=== PATIENT | male | born 1995 | race Caucasian/White ===

== ENCOUNTER 2019-07-29 14:43 | Emergency (ER) | payer SELFPAY ==
[2019-07-29 15:17] LABS: #Basophils 0.1 thou/uL (0.0-0.2); #Eosinphils 0.2 thou/uL (0.0-0.7); %Basophils 0.4 % (0.0-1.0); %Eosinophils 1.2 % (0.0-10.0); %Monocytes 6.3 % (0.0-10.0); %Neutrophils 79.2 % (42.0-75.0); Hemoglobin 17.1 g/dL (14.0-18.0); Mean Corpuscular HGB CONC 34.9 g/dL (32.0-36.0); Mean Platelet Volume 7.8 fL (7.4-10.4); Platelet Count 281 thou/uL (130-400); RBC Distribution Width 12.6 % (11.5-14.5); Red Blood Cell (RBC) Count 5.71 mill/uL (4.70-6.10); White Blood Cell (WBC) Count 15.2 thou/uL (4.8-10.8)
[2019-07-29 15:22] LABS: Bacteria/HPF None Seen HPF (None Seen); Bilirubin Negative (Negative); Blood, Urine Trace (Negative); Clarity Clear (Clear); Glucose, Urine (Dipstick) Normal (Negative); Leukocyte Negative Leu/uL (Negative); Nitrite Negative (Negative); Protein, Urine (Dipstick) 30 mg/dL (Neg-Trace); RBC/HPF 0-3 HPF (0-3); Squamous Epithelial None Seen HPF (0-3); Urobilinogen Normal mg/dL (Less than 2); WBC/HPF 0-3 HPF (0-3)
--- NOTE | 2019-07-29 15:26 | RAD ---
Exam:3 views left shoulder HISTORY: Pain. Fall. COMPARISON: None FINDINGS: Anterior-inferior dislocation. Postreduction films are recommended. IMPRESSION: Dislocation. Postreduction films are recommended.
[2019-07-29 15:35] LABS: ALT (SGPT) 11 U/L (8-55); AST (SGOT) 19 U/L (5-34); Albumin 3.9 g/dL (3.5-5.0); Alcohol Less than 10 mg/dL (Less than 10); Alkaline Phosphatase 87 U/L (40-110); Anion Gap 14 mmol/L (10-20); BUN (Urea Nitrogen) 9 mg/dL (8.9-20.6); Bilirubin, Total 0.5 mg/dL (0.2-1.2); Calc. Creatinine Clearance 0 mL/min (70-130); Calcium 8.5 mg/dL (7.8-10.44); Carbon Dioxide 17 mmol/L (22-29); Chloride 109 mmol/L (98-107); Estimated GFR-MDRD Greater than 90; Globulin 2.9 g/dL (2.4-3.5); Glucose 113 mg/dL (70-105); Potassium 3.7 mmol/L (3.5-5.1); Protein, Total 6.8 g/dL (6.0-8.3); Sodium 136 mmol/L (136-145)
--- NOTE | 2019-07-29 15:43 | CT ---
Exam: Head CT without contrast HISTORY: Trauma. Pain. Seizure. COMPARISON: none FINDINGS: Hemorrhage: No intraparenchymal hemorrhage or extra-axial hematoma. Brain parenchyma: Cortical ramon-white matter differentiation is preserved. No mass effect or midline shift. Basilar cisterns are patent. Ventricular system: Sulci are patent and symmetric. No hydrocephalus. Calvarium: Intact. Sinuses and mastoid air cells: Mucosal disease of the right sphenoid sinus IMPRESSION: No intracranial post traumatic sequelae.
--- NOTE | 2019-07-29 15:54 | CT ---
Exam: Maxillofacial CT without contrast HISTORY: Seizure. Trauma. Pain FINDINGS: Visualized brain parenchyma has appropriate attenuation Bilateral ocular lenses are appropriately located. Both globes are intact. Retrobulbar fat is preserv ed. Symmetric attenuation of the optic nerves and ocular rectus muscles Visualized aerodigestive tract is patent. Midline fatty raphae of the tongue is preserved. Epiglottis has a normal caliber. Preepiglottic fat is preserved Coronal images demonstrate patent bilateral ostiomeatal complexes. Mild rightward deviation of the na hoda septum with associated spur Zygomatic arches are intact Maxilla and mandible is intact. The osseous margins of the sinuses and orbits are maintained. No fracture. No nasal bone fracture. No symmetric and soft tissue hematoma. IMPRESSION: No maxillofacial fracture. Transcribed Date/Time: 07/29/2019 4:38 PM
--- NOTE | 2019-07-29 15:56 | CT ---
Exam: CT cervical spine without contrast HISTORY: Trauma. Pain. COMPARISON: None FINDINGS: No craniocervical dissociation. Though the lateral masses of C1 and C2 appear to articulate appropria tely, there is asymmetric narrowing of the lateral clear space along the left aspect of the odontoid process. The possibility of ligamentous injury cannot be excluded. Intact odontoid process w ithout evidence of odontoid process fracture. If there is concern for ligamentous injury, consider MRI. Appropriate alignment of the facets. Straightening of normal cervical lordosis may be due to patient position, muscle spasm or cervical co llar Soft tissue neck structures: No mass, lymphadenopathy or hematoma. No prevertebral soft tissue swelli ng. Upper mediastinum and lung apices: Unremarkable Central spinal canal: Neural foramina and central spinal canal are patent. Evaluation is limited by t echnique Vertebral bodies: Cervical spine vertebral body height is maintained. No fracture. IMPRESSION: 1. No fracture 2. Straightening of normal cervical lordosis as detailed above. Additionally, there is slight leftwar d offset of the odontoid process with respect to the C1 vertebral body. [employer] images do not demonstrate any abnormal alignment. If there is concern for ligamentous injury, cervical spine MRI is recommended. Transcribed Date/Time: 07/29/2019 4:36 PM
[2019-07-29] MEDS ORDERED: Ketamine 50 MG/ML (10ML VIAL) ONE (16:22)
--- NOTE | 2019-07-29 16:59 | RAD ---
Radiograph left shoulder 2 views: DATE: 07/29/2019 Time: 4:10 PM HISTORY: 24-year-old male with traumatic left shoulder dislocation. Status post reduction. COMPARISON: 07/29/2019 2:43 PM FINDINGS: The glenohumeral joint is now located. No fracture. IMPRESSION: Successful reduction of acute anteroinferior glenohumeral joint shoulder dislocation
[2019-07-29 17:10] LABS: Amphetamine Not Detected (NotDetected); Barbiturates Screen Not Detected (NotDetected); Benzodiazepine Screen Not Detected (NotDetected); Cocaine Metabolite Screen Not Detected (NotDetected); Medtox Reader # READER 4; Methadone Not Detected (NotDetected); Methamphetamine Not Detected (NotDetected); Opiate Screen Detected (NotDetected); Oxycodone Screen Not Detected (NotDetected); Phencyclidine (PCP) Not Detected (NotDetected); THC/Cannabinoid Screen Not Detected (NotDetected); Tricyclic Screen Not Detected (NotDetected)
[2019-07-29 17:11] LABS: Medtox Control Line Valid? VALID (VALID)
[2019-07-29] MEDS ORDERED: levETIRAcetam 500 MG TAB PO SCH (18:30)
[2019-07-29] MEDS ORDERED: Ondansetron ODT 4 MG TAB ONE (18:40)
== END 2019-07-29 19:06 | disposition home or self-care (01) ==
LOC: ERS 14:43
DX: S43.015A Anterior dislocation of left humerus, initial encounter (principal); R56.9 Unspecified convulsions; F17.210 Nicotine dependence, cigarettes, uncomplicated; X58.XXXA Exposure to other specified factors, initial encounter
CPT/HCPCS: 23650; 36415; 70450; 70486; 72125; 80053; 80306; 80307; 81003; 81015; 85025; 94760; 99152; Q0162

== ENCOUNTER 2020-08-08 09:19 | Outpatient (CLI) | payer OTHER | END 2020-08-08 09:20 | disposition home or self-care (01) | LOC: RAD 09:19 → EEVIPCON 09:19 → RAD 09:20 | PROVIDERS: ATTEND Orthopaedic Surgery | DX: M24.412 Recurrent dislocation, left shoulder (principal); S43.432A Superior glenoid labrum lesion of left shoulder, initial encounter; M75.92 Shoulder lesion, unspecified, left shoulder; M75.102 Unspecified rotator cuff tear or rupture of left shoulder, not specified as traumatic; M25.812 Other specified joint disorders, left shoulder; M21.922 Unspecified acquired deformity of left upper arm | CPT/HCPCS: 23350 ==

== ENCOUNTER 2020-08-20 10:45 | Outpatient (CLI) | payer OTHER ==
[~2020-08-20 10:45] MED LIST: Magnevist 469MG/ML 20 ML VIAL ONE
== END 2020-08-20 10:46 | disposition home or self-care (01) ==
LOC: BICMRI 10:45
PROVIDERS: ATTEND Psychiatry & Neurology Neurology
DX: G40.909 Epilepsy, unspecified, not intractable, without status epilepticus (principal)
CPT/HCPCS: 70553